=== PATIENT | male | born 1985 | race African-American/Black ===

== ENCOUNTER 2018-11-20 11:40 | Emergency (ER) | payer OTHER ==
[~2018-11-20] VITALS: Ht 193 cm; Wt 140.9 kg
[~2018-11-20 11:40] MED LIST: ALBU8HFA IH
[2018-11-20 12:56] LABS: APPEARANCE,URINE CLEAR (CLEAR); BILIRUBIN,URINE NEGATIVE (NEGATIVE); GLUCOSE, URINE (UA) >=1000 mg/dL (NEGATIVE); KETONES,URINE 40 mg/dL (NEGATIVE); LEUKOCYTE ESTERASE ,URINE NEGATIVE (NEGATIVE); NITRATE,URINE NEGATIVE (NEGATIVE); OCCULT BLOOD,URINE TRACE (NEGATIVE); PROTEIN,URINE POS 1+ (NEGATIVE); UROBILINOGEN,URINE 0.2 mg/dL (<=1.0)
[2018-11-20 13:07] LABS: BACTERIA,URINE None Seen /HPF (None Seen); SQUAMOUS EPITHELIAL CELL,UR Few /LPF (None Seen); WBC,URINE 0-2 /HPF (0-5)
[2018-11-20] MEDS ORDERED: ERYTHROMYCIN 0.5% 3.5 GM TUBE OPHTHALMIC OINTMENT OD ONE (13:15)
[2018-11-20 13:27] VITALS: BP 143/100
== END 2018-11-20 13:30 | disposition home or self-care (01) ==
LOC: EMS 11:40
DX: N47.1 Phimosis (principal); N47.6 Balanoposthitis; H10.9 Unspecified conjunctivitis; F17.210 Nicotine dependence, cigarettes, uncomplicated; J45.909 Unspecified asthma, uncomplicated
CPT/HCPCS: 99406

== ENCOUNTER 2019-08-14 10:31 | Emergency (ER) | payer OTHER ==
[~2019-08-14] VITALS: Ht 193 cm; Wt 111.4 kg
[2019-08-14] MEDS ORDERED: METR45CR TP (10:38)
[2019-08-14] MEDS ORDERED: CLOT15CR73 TP (10:38)
[2019-08-14 11:46] VITALS: BP 150/110
== END 2019-08-14 11:45 | disposition home or self-care (01) ==
LOC: EMS 10:32
DX: Z76.0 Encounter for issue of repeat prescription (principal); R03.0 Elevated blood-pressure reading, without diagnosis of hypertension; J45.909 Unspecified asthma, uncomplicated; F17.210 Nicotine dependence, cigarettes, uncomplicated; F12.90 Cannabis use, unspecified, uncomplicated